=== PATIENT | female | born 1955 | race Caucasian/White ===

== ENCOUNTER 2017-04-26 14:02 | Day surgery (SDC) | payer OTHER ==
[2017-04-26] MEDS ORDERED: FENTAnyl 50 MCG/ML VIAL (16:51)
[2017-04-26] MEDS ORDERED: MIDAZOLAM 1 MG/ML 2 ML INJ ×2 (16:52)
== END 2017-04-26 17:39 | disposition home or self-care (01) ==
LOC: GIL 14:02
DX: Z12.11 Encounter for screening for malignant neoplasm of colon (principal); K29.70 Gastritis, unspecified, without bleeding; K64.8 Other hemorrhoids; K21.9 Gastro-esophageal reflux disease without esophagitis
CPT/HCPCS: 43239; 88305; 88312